=== PATIENT | male | born 1985 | race Two or more races ===

== ENCOUNTER 2023-03-04 11:23 | Emergency (ER) | payer SELFPAY ==
[~2023-03-04] VITALS: Ht 177.8 cm; Wt 109.0 kg
[2023-03-04 13:15] VITALS: BP 132/79
[2023-03-04] MEDS ORDERED: IBUPROFEN 600 MG TAB PO ONE (13:45)
[2023-03-04] MEDS ORDERED: predniSONE 20 MG TAB PO ONE (13:45)
[2023-03-04] MEDS ORDERED: PRED20TA2 PO (13:50)
[2023-03-04] MEDS ORDERED: IBUP1TAB5 PO (13:50)
== END 2023-03-04 14:09 | disposition home or self-care (01) ==
LOC: ER 11:23
DX: S46.912A Strain of unspecified muscle, fascia and tendon at shoulder and upper arm level, left arm, initial encounter (principal); X50.0XXA Overexertion from strenuous movement or load, initial encounter; Y93.89 Activity, other specified; Y92.89 Other specified places as the place of occurrence of the external cause; Y99.8 Other external cause status
CPT/HCPCS: 73030; 99283; J7512